=== PATIENT | male | born 1965 | race Caucasian/White ===

== ENCOUNTER 2016-10-26 19:37 | Emergency (ER) | payer OTHER | END 2016-10-26 20:55 | disposition home or self-care (01) | LOC: ER 19:37 | DX: R49.0 Dysphonia (principal); J40 Bronchitis, not specified as acute or chronic; J02.9 Acute pharyngitis, unspecified; S70.362D Insect bite (nonvenomous), left thigh, subsequent encounter; W57.XXXD Bitten or stung by nonvenomous insect and other nonvenomous arthropods, subsequent encounter; F17.210 Nicotine dependence, cigarettes, uncomplicated | CPT/HCPCS: 99282 ==